=== PATIENT | female | born 1995 | race Caucasian/White ===

== ENCOUNTER 2017-05-21 03:19 | Emergency (ER) | payer OTHER ==
--- NOTE | ~2017-05-21 | ER ---
ADMIT: 05/21/2017 RM/LOC: ER [facility] MR#: [id number] [address] [facility] [address] [place] [id number] DALY TORREZ , Emergency Room Report SEX: F AGE: 22 : 1995 DATE: 05/21/2017 CHIEF COMPLAINT: Concern for methamphetamine use in [facility]. HISTORY OF PRESENT ILLNESS: The patient is a 22-year-old female, who is brought in by the industrial sales engineer for concern that she is hiding methamphetamine in her body. She has been jailed for the past 2 days, and they have found a couple different baggies of methamphetamine on her at different times, and she is obviously under the influence of meth, and they are concerned that she might have other ones in her body. PAST MEDICAL HISTORY: Unremarkable. MEDICATIONS: None. ALLERGIES: NONE. SOCIAL HISTORY: Admits to meth use. PHYSICAL EXAMINATION: GENERAL: The patient is quite anxious and agitated, HEENT: Head is otherwise atraumatic. Pupils are equal, round, reactive. HEART: Tachycardic. LUNGS: Clear to auscultation. ABDOMEN: Soft. SKIN: Warm and dry. She can move all extremities. NEURO: Grossly intact. X-ray of pelvis is negative for any obvious foreign body and urine was negative. MEDICAL DECISION MAKING: I am not comfortable doing an invasive pelvic exam on this patient for the possibility of some meth that is retained in her vagina, but once we get a urine preg which was negative, we did get an x-ray in which I do not see any foreign bodies. She was given some Ativan IM while in the ER to help her calm down. The patient does appear stable to go back to [facility] at this time, and she is discharged home and told not to use any additional methamphetamine. DIAGNOSES: 1. Methamphetamine use. 2. Anxiety. Lucien Damon MD/ amelie JOB #: [id number] CC: ADMIT: 05/21/2017 RM/LOC: [facility] MR#: [id number] [address] [id number] DALY TORREZ , Emergency Room Report SEX: F AGE: 22 : 1995 Lucien Damon MD, Attending Physician
== END 2017-05-21 05:18 ==
LOC: ER 03:19
DX: F15.90 Other stimulant use, unspecified, uncomplicated (principal); F41.9 Anxiety disorder, unspecified; F17.210 Nicotine dependence, cigarettes, uncomplicated

== ENCOUNTER 2017-05-21 13:51 | Emergency (ER) | payer OTHER ==
--- NOTE | 2017-05-23 13:13 | ER ---
ADMIT: 05/21/2017 RM/LOC: ER [facility] MR#: [id number] [address] [id number] DALY TORREZ ATTN: [place] [address] Emergency Room Report SEX: F AGE: 22 : 1995 DATE: 05/21/2017 ADDENDUM: [facility] because they are concerned about her having meth hidden on her person. She was seen in the ER yesterday because they found some bags of meth after she had, had a cavity search before going into the penitentiary. She came into the ER, they did an x-ray and did not find any foreign bodies, but they think that she has some in her vagina that is where she told them she had hidden 4 bags. On physical exam, the patient definitely is anxious and looks like she is coming down from methamphetamine. She states she ate whatever that she had hidden on herself, which was 1 bag. I did do a vaginal exam on her and I saw no foreign bodies in her vagina, however, she had very purulent foul drainage. She did mention that she was diagnosed as having Chlamydia, but never was able to get the prescription filled for the medication. I did speak with the nurse on-call at the penitentiary, and I did give her Rocephin 1 g IM and Zithromax 1 g p.o. Because she was so anxious and hyperactive from the methamphetamine use, she was given hydroxyzine 100 mg p.o. DIAGNOSES: 1. Methamphetamine use. 2. Vaginitis. ROJELIO Elizabeth / Eliud Lamar MD / amelie JOB #: [id number] CC: Eliud Lamar MD, Attending Physician Dayo De La Torre MD, Family Physician
== END 2017-05-21 15:15 | disposition home or self-care (01) ==
LOC: ER 13:51
DX: T43.622A Poisoning by amphetamines, intentional self-harm, initial encounter (principal); N76.0 Acute vaginitis; F17.210 Nicotine dependence, cigarettes, uncomplicated; Z98.890 Other specified postprocedural states